=== PATIENT | male | born 1980 | race Caucasian/White ===

== ENCOUNTER 2021-01-04 10:30 | Emergency (ER) | payer MEDICAID, SELFPAY ==
[2021-01-04 10:45] VITALS: BP 164/103; PULSE 93; RESP 16; TEMP 36.6; O2SAT 97; BMI 36.9
--- NOTE | 2021-01-04 11:07 | XR_ITS ---
WS: [id number] XR chest 1V portable [id number] REASON FOR EXAM: fatigue FINDINGS: The heart and mediastinum are within normal limits. Calcified granulomatous changes in both hemithoraces. No active pulmonary parenchymal or pleural disease. Bony thorax is intact. Small overlying artifact in the left lower midlung field. XR/XR chest 1V portable [id number] IMPRESSION: No acute chest abnormality.
--- NOTE | 2021-01-04 11:07 | ECG_ITS ---
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 Measurements Intervals [place] Rate: 88 P: 41 MO: 165 QRS: 26 QRSD: 87 T: 21 QT: 376 QTc: 455 Interpretive Statements SINUS RHYTHM Compared to ECG 05/23/2018 14:05:50 T-wave abnormality no longer present Electronically Signed On 01-04-2021 18:29:46 CDT by Milagros Willis M.D. [email or web address] Technologymercy [email or web address] st[id number]
[2021-01-04 12:01] VITALS: BP 180/116; PULSE 91; RESP 16; O2SAT 96
[2021-01-04 12:14] LABS: Basophils # 0.1 10^3/uL (0.0-0.1); Basophils % 0.7 %; Eosinophils # 0.1 10^3/uL (0.0-0.8); Eosinophils % 0.7 %; Hematocrit 42.2 % (42.0-52.0); Hemoglobin 14.8 g/dL (11.7-16.6); Lymphocytes % 24.1 %; Mean Corpuscular HGB Conc 35.1 g/dL (30.0-36.0); Mean Corpuscular Hemoglobin 29.6 pg (28.0-34.0); Mean Corpuscular Volume 84.4 fl (80-94); Mean Platelet Volume 9.7 fL (7.4-10.4); Monocytes # 0.7 10^3/uL (0.2-0.9); Monocytes % 8.1 %; Neutrophils # 5.51 10^3/uL (1.8-7.7); Neutrophils % 65.8 %; Nucleated Red Blood Cells % 0 %; Platelet Count 227 10^3/cmm (130-400); Red Cell Distribution Width 11.9 % (12.1-15.1); White Blood Count 8.4 10^3/uL (4.0-10.0)
[2021-01-04 12:31] LABS: Alanine Aminotransferase 73 U/L (0-41); Albumin Level 4.5 g/dL (3.5-5.2); Alkaline Phosphatase 56 IU/L (40-130); Anion Gap 16.1 (5-19); Aspartate Amino Transferase 52 U/L (0-40); Blood Urea Nitrogen 10 mg/dL (6-20); Calcium 9.2 mg/dL (8.5-10.5); Carbon Dioxide 26 mmol/L (22-29); Chloride 101 mmol/L (98-107); Globulin 2.6 g/dL (1.3-4.6); Glucose 115 mg/dL (65-115); Magnesium 2.1 mg/dL (1.7-2.3); Osmolality Calculated 288 mOsm/kg (285-295); Potassium 4.1 mmol/L (3.5-5.1); Sodium 139 mmol/L (136-145); Total Bilirubin 0.9 mg/dL (0.15-1.2); Total Protein 7.1 g/dL (6.6-8.7)
--- NOTE | 2021-01-04 13:53 | W.ED.GENADLT ---
HPI - General Adult General: Chief complaint: General Medical Stated complaint: multiple complaints Time Seen by Provider: 01/04/21 11:06 History of Present Illness: HPI narrative: Patient is a 40-year-old male with a past medical history of high blood pressure and Sanborn spotted fever. He is here with a week and a half of various complaints. Including low back pain that has had for several weeks feeling generally ill low-grade fever sinus drainage pressure and headache. States he felt like when he had Sanborn spotted fever several years ago. He saw his primary care provider for this on Thursday was started on doxycycline for which she is currently taking. He became concerned yesterday when he took one of his 's baclofen and felt flushed. He looked up his symptoms and thought this could be due to liver or kidney issues. He is mostly here just for a general checkup and reassurance that his kidney function liver functions have not become an issue with him. As far as his back pain denies fevers paresthesias difficulty moving his legs saddle paresthesia or loss of bowel or bladder function no history of hepatitis HIV diabetes immunocompromise or IV drug use. No recent cancer treatment no recent back surgeries Denies chest pain shortness of breath nausea vomiting diarrhea constipation hematuria rash headache altered mental status or neck pain Review of Systems General: Reports: 10 or more systems reviewed and unremarkable except in HPI and below Physical Exam Const: COMMON NORMALS: no acute distress, average body habitus, patient oriented x3, no limitations, healthy appearing, alert and well nourished HENMT: COMMON NORMALS: normocephalic, atraumatic, hearing grossly normal bilaterally, external ears normal, EAC's normal, TM's normal bilaterally, Normal external nose present, Normal nasal mucous membranes and turbinates present, moist oral mucous membranes, oropharynx normal, dentition normal and gingiva normal HEAD & SCALP: normocephalic and atraumatic NOSE: Normal external nose present and Normal nasal mucous membranes and turbinates present EXTERNAL EAR: Yes external ears normal EXTERNAL AUDITORY CANAL: EAC's normal TYMPANIC MEMBRANE: TM's normal bilaterally Eye: COMMON NORMALS: Equal, round and reactive pupils present, EOMs intact bilaterally, conjunctivae normal and no scleral icterus CONJUNCTIVA: Yes conjunctivae normal PUPIL: Yes Equal, round and reactive pupils present Neck/C-Spine: COMMON NORMALS: no JVD Resp: COMMON NORMALS: normal respiratory effort, No retractions, No use of accessory muscles and clear to auscultation bilaterally AUSCULTATION: clear to auscultation bilaterally Cardio: COMMON NORMALS: no JVD, regular rate, regular rhythm, S1 normal heart sound present, S2 normal heart sound present, No gallops present (Cardio), No clicks present (Cardio), No murmurs present (Cardio), No rub (Cardio) and Peripheral pulses 2+ throughout RATE: regular rate RHYTHM: regular rhythm HEART SOUNDS: S1 normal heart sound present and S2 normal heart sound present PERIPHERAL PULSES: Peripheral pulses 2+ throughout GI: COMMON NORMALS: Normal to inspection, nondistended, normoactive bowel sounds present, Soft to palpation, non-tender, No hepatosplenomegaly present, no masses and no bruits PALPATION: Yes Soft to palpation and Yes No hepatosplenomegaly present : COMMON NORMALS: Yes no CVA tenderness BLADDER/KIDNEY EXAM: Yes no CVA tenderness Back/Pelvis: COMMON NORMALS: no CVA tenderness, thoracic and lumbar spine normal to inspection, no thoracic nor lumbar tenderness, thoraco-lumbar ROM normal and straight leg raise negative bilaterally Extremity: COMMON NORMALS: normal to inspection, full ROM, capillary refill normal, no joint enlargement, no clubbing, cyanosis or edema, no calf tenderness and no pedal edema Neuro: COMMON NORMALS: patient oriented x3, CN's II-XII intact bilaterally, moves all extremities, no focal motor deficits, no sensory deficits noted, deep tendon reflexes 2+ bilaterally and gait normal SENSORIUM/ORIENTATION: Yes alert Psych: COMMON NORMALS: mental status grossly normal Skin: COMMON NORMALS: no rashes or lesions noted, no wounds, turgor normal, no jaundice, no petechiae and no mottling GENERAL SKIN EXAM: no rashes or lesions noted and turgor normal Course ED course: EKG normal labs normal chest x-ray normal he was a little bit elevated his blood sugar and explained he needs a follow-up with his primary care provider for that. Explained to him that did not find any emergent symptoms or findings here that he can follow-up with his primary care for the rest of symptoms. Does not have any red flags for any serious or emergent back issues or spinal issues. At this point he is appropriate for discharge Vital Signs: Vital signs: Vital Signs Temperature 97.9 F 01/04/21 10:45 Pulse Rate 91 01/04/21 12:01 Respiratory Rate 16 01/04/21 12:01 Blood Pressure 180/116 01/04/21 12:01 Pulse Oximetry 96 01/04/21 12:01 MDM - General Adult MDM Narrative: Medical decision making narrative: Patient is a 40-year-old male here with general medical concerns. Patient is well-appearing in no acute distress vital signs are normal other than very mildly hypertensive. Does not need immediate resuscitation or airway management. Will get basic labs on him CBC CMP we will going to send tick panels on him as he has had tick exposure feels similar to his previous symptoms. Again he is taking doxycycline currently. But no signs or symptoms of any tickborne illness EKG shows normal sinus rhythm rate 88 normal intervals normal axis no evidence of ischemia or infarct Lab Data: Labs: Lab Results 01/04/21 01/04/21 Range/Units 11:58 11:58 WBC 8.4 (4.0-10.0) 10^3/ uL RBC 5.00 (4.1-5.3) 10^6/u L Hgb 14.8 (11.7-16.6) g/dL Hct 42.2 (42.0-52.0) % MCV 84.4 (80-94) fl MCH 29.6 (28.0-34.0) pg MCHC 35.1 (30.0-36.0) g/dL RDW 11.9 L (12.1-15.1) % Plt Count 227 (130-400) 10^3/c mm MPV 9.7 (7.4-10.4) fL Neut % (Auto) 65.8 % Lymph % (Auto) 24.1 % [place] % (Auto) 8.1 % Eos % (Auto) 0.7 % Baso % (Auto) 0.7 % Neut # (Auto) 5.51 (1.8-7.7) 10^3/u L Lymph # (Auto) 2.0 (0.8-4.8) 10^3/u L [place] # (Auto) 0.7 (0.2-0.9) 10^3/u L Eos # (Auto) 0.1 (0.0-0.8) 10^3/u L Baso # (Auto) 0.1 (0.0-0.1) 10^3/u L Nucleated RBC % (a uto) 0 % Nucleated RBCs # 0.0 /100WBC Sodium 139 (136-145) mmol/L Potassium 4.1 (3.5-5.1) mmol/L Chloride 101 (98-107) mmol/L Carbon Dioxide 26 (22-29) mmol/L Anion Gap 16.1 (5-19) BUN 10 (6-20) mg/dL Creatinine 0.6 L (0.7-1.2) mg/dL GFR Calculation 150.0 H (90-130) mL/min Glucose 115 (65-115) mg/dL Calculated Osmolal ity 288 (285-295) mOsm/k g Calcium 9.2 (8.5-10.5) mg/dL Magnesium 2.1 (1.7-2.3) mg/dL Total Bilirubin 0.9 (0.15-1.2) mg/dL AST 52 H (0-40) U/L ALT 73 H (0-41) U/L Alkaline Phosphata se 56 (40-130) IU/L Total Protein 7.1 (6.6-8.7) g/dL Albumin 4.5 (3.5-5.2) g/dL Globulin 2.6 (1.3-4.6) g/dL Discharge Plan Discharge Patient Disposition: Home Clinical Impression: Physically well but worried Back pain Qualifiers: Back pain location: low back pain Chronicity: chronic Back pain laterality: bilateral Sciatica presence: without sciatica Qualified Code(s): M54.5 - Low back pain Tick bite Qualifiers: Encounter type: initial encounter Qualified Code(s): W57.XXXA - Bitten or stung by nonvenomous insect and other nonvenomous arthropods, initial encounter Condition: Stable Prescriptions: No Action doxycycline hyclate 100 mg Capsule 100 mg PO BID RF: 0 alprazolam 0.5 mg tablet 0.5 mg PO DAILY PRN (Reason: Anxiety) RF: 0 baclofen 10 mg Tablet 10 mg PO QID PRN (Reason: Pain) RF: 0 metformin 1,000 mg tablet 1,000 mg PO BID RF: 0 lisinopril 10 mg Tablet 10 mg PO DAILY RF: 0 Discharge Orders: Discharge ED (Routine); Ordered 01/04/21 Ordered By: Rob Lawler Patient Instructions: Low Back Strain (ED), Fatigue (ED) Activity Restrictions/Additional Instructions: Follow-up with your primary care provider as needed in 3 to 5 days. Return the emergency department with any other new or worsening symptoms. Take your medications as prescribed. Would strongly suggest that she get a Covid vaccine. You want to discuss this further he can discuss this with your primary care provider. Coding Level of Care Code ED Seed Service Advisor for Fabiola Ramirez
== END 2021-01-04 13:35 | disposition home or self-care (01) ==
PROVIDERS: Emergency Provider Family Medicine
DX: M54.5 Low back pain (principal); T14.8XXA Other injury of unspecified body region, initial encounter; W57.XXXA Bitten or stung by nonvenomous insect and other nonvenomous arthropods, initial encounter
CPT/HCPCS: 71045; 80053; 83735; 85025; 93005; 99283

== ENCOUNTER → 2021-05-20 12:02 | Outpatient (BNVA) | payer BC, SELFPAY | PROVIDERS: PCP Family Medicine; Visit Provider Family Medicine | DX: E11.9 Type 2 diabetes mellitus without complications (principal); E78.5 Hyperlipidemia, unspecified; I10 Essential (primary) hypertension; L72.9 Follicular cyst of the skin and subcutaneous tissue, unspecified | CPT/HCPCS: 83036 ==

== ENCOUNTER → 2021-09-12 15:46 | Outpatient (BNVA) | payer BC, SELFPAY | PROVIDERS: PCP Family Medicine; Visit Provider Family Medicine | DX: E11.9 Type 2 diabetes mellitus without complications (principal); L72.9 Follicular cyst of the skin and subcutaneous tissue, unspecified; F41.9 Anxiety disorder, unspecified; E78.5 Hyperlipidemia, unspecified; I10 Essential (primary) hypertension; E66.9 Obesity, unspecified | CPT/HCPCS: 83036 ==

== ENCOUNTER → 2022-04-09 11:34 | Outpatient (BNVA) | payer BC, SELFPAY | PROVIDERS: PCP Family Medicine; Visit Provider Family Medicine | DX: E66.9 Obesity, unspecified (principal); E11.9 Type 2 diabetes mellitus without complications; J01.90 Acute sinusitis, unspecified | CPT/HCPCS: 83036; 84443 ==

== ENCOUNTER → 2022-07-01 16:42 | Outpatient (BNVA) | payer BC, SELFPAY | PROVIDERS: PCP Family Medicine; Visit Provider Family Medicine | DX: E11.9 Type 2 diabetes mellitus without complications (principal) | CPT/HCPCS: 80061; 83036; 83721 ==

== ENCOUNTER → 2022-09-16 17:12 | Outpatient (BNVA) | payer BC, SELFPAY | PROVIDERS: PCP Family Medicine; Visit Provider Family Medicine | DX: E78.1 Pure hyperglyceridemia (principal) | CPT/HCPCS: 80061 ==

== ENCOUNTER → 2023-01-27 16:29 | Outpatient (BNVA) | payer BC, SELFPAY | PROVIDERS: PCP Family Medicine; Visit Provider Family Medicine | DX: J01.90 Acute sinusitis, unspecified (principal); E78.1 Pure hyperglyceridemia | CPT/HCPCS: 80061; 83036 ==

== ENCOUNTER → 2023-02-16 10:47 | Outpatient (BNVA) | payer BC, SELFPAY | PROVIDERS: PCP Family Medicine; Visit Provider Nurse Practitioner Family | DX: E66.9 Obesity, unspecified (principal); R50.9 Fever, unspecified | CPT/HCPCS: 87400; 87426; 87880 ==

== ENCOUNTER → 2023-07-28 14:17 | Outpatient (BNVA) | payer BC, SELFPAY | PROVIDERS: PCP Family Medicine; Visit Provider Nurse Practitioner Family | DX: I10 Essential (primary) hypertension (principal); E78.5 Hyperlipidemia, unspecified; E11.9 Type 2 diabetes mellitus without complications | CPT/HCPCS: 80053; 81003; 83036; 85025 ==

== ENCOUNTER → 2023-09-21 16:39 | Outpatient (BNVA) | payer BC, SELFPAY | PROVIDERS: PCP Family Medicine; Visit Provider Nurse Practitioner Family | DX: I10 Essential (primary) hypertension (principal); E11.9 Type 2 diabetes mellitus without complications | CPT/HCPCS: 80061; 83036 ==

== ENCOUNTER 2024-07-11 10:25 | Outpatient (CLI) | payer BC, MEDICAID, SELFPAY ==
--- NOTE | 2024-07-11 10:30 | US_ITS ---
WS: [id number] Complete ABDOMINAL ULTRASOUND HISTORY: ABDOMINAL PAIN COMPARISON: None available. Liver: 17.8 cm in length. Top normal size liver. Echogenic liver likely from hepatic steatosis. No mass identified. Portal Vein: Normal hepatopetal flow with monophasic waveform. Gallbladder: Normally distended gallbladder with no stones or wall thickening. CBD: 0.4 cm Pancreas: Not visualized. Right kidney: 11.0 cm x 6.2 x 5.7 cm. Cortex:1.2 cm. Normal size and echogenicity. No hydronephrosis or mass. Left kidney: 11.4 cm x 5.3 cm x 5.8 cm. Cortex: 1.2 cm. Normal size and echogenicity. No hydronephrosis or mass. Spleen: 12.1 cm. Normal size and echogenicity. Aorta and IVC: Unremarkable abdominal aorta and IVC. US/US abdomen complete* [id number] Impression: 1. Normal gallbladder. 2. Mild hepatic steatosis and hepatomegaly. 3. No renal obstruction.
== END 2024-07-11 10:26 | disposition home or self-care (01) ==
LOC: RAD 10:26
PROVIDERS: PCP Nurse Practitioner; Visit Provider Nurse Practitioner
DX: R16.0 Hepatomegaly, not elsewhere classified (principal); K76.0 Fatty (change of) liver, not elsewhere classified
CPT/HCPCS: 76700